=== PATIENT | male | born 1960 | race Caucasian/White ===

== ENCOUNTER 2020-09-10 13:28 | Emergency (ER) | payer MEDICAID, OTHER ==
[~2020-09-10] VITALS: Ht 162.6 cm; Wt 69.0 kg
[2020-09-10] MEDS ORDERED: NAP5EC MT (14:28)
[2020-09-10] MEDS ORDERED: IBUPROFEN 600MG TABLET PO ONE (14:30)
[2020-09-10 14:45] VITALS: BP 128/66
== END 2020-09-10 14:46 | disposition home or self-care (01) ==
LOC: ER 13:28
DX: M54.5 Low back pain (principal); Z98.890 Other specified postprocedural states; X50.0XXA Overexertion from strenuous movement or load, initial encounter; Y93.H2 Activity, gardening and landscaping; Y92.89 Other specified places as the place of occurrence of the external cause; Y99.8 Other external cause status
CPT/HCPCS: 99282

== ENCOUNTER 2022-07-16 11:08 | Emergency (ER) | payer MEDICAID ==
[~2022-07-16] VITALS: Ht 167.6 cm; Wt 59.0 kg
[~2022-07-16 11:08] MED LIST: NAP5EC MT
[2022-07-16] MEDS ORDERED: LIDO700A15 TP (16:52)
[2022-07-16] MEDS ORDERED: CYCL5TAB MT (16:52)
[2022-07-16] MEDS ORDERED: NAPR-677 MT (16:53)
[2022-07-16] MEDS ORDERED: ACETAMINOPHEN 325MG TABLET PO ONE (17:00)
[2022-07-16] MEDS ORDERED: KETOROLAC 30MG/ML VIAL IM ONE (17:00)
[2022-07-16 17:27] VITALS: BP 124/73
== END 2022-07-16 17:35 | disposition home or self-care (01) ==
LOC: ER 11:58
DX: M54.9 Dorsalgia, unspecified (principal); M54.2 Cervicalgia; V49.60XA Unspecified car occupant injured in collision with unspecified motor vehicles in traffic accident, initial encounter; Y93.89 Activity, other specified; Y92.9 Unspecified place or not applicable; Z98.890 Other specified postprocedural states
CPT/HCPCS: 96372; 99283; J1885